=== PATIENT | male | born 1970 | race Caucasian/White ===

== ENCOUNTER 2019-07-21 22:49 | Inpatient (IN) ==
[2019-07-21] MEDS ORDERED: SODIUM CHLORIDE 0.9% 1000ML 1,000 ML IV ONE (23:17)
[2019-07-21] MEDS ORDERED: KETOROLAC TROMETHAMINE 15 MG/ML VIAL IV STA (23:17)
[2019-07-21] MEDS ORDERED: DiphenhydrAMINE HCL 50 MG/ML VIAL IV STA (23:17)
[2019-07-21 23:26] LABS: Basophils # (auto) 0.01 K/uL (0-0.2); Basophils % (auto) 0.1 %; Eosinophils # (auto) 0.25 K/uL (0-0.5); Eosinophils % (auto) 1.6 %; Hematocrit (blood only) 47.5 % (42-52); Hemoglobin 15.6 g/dL (14.0-18.0); Immature Granulocytes % (auto) 0.6 %; Lymphocytes # (auto) 4.05 K/uL (1.2-3.4); Lymphocytes % (auto) 25.2 %; Mean Corpuscular Hemoglobin 28.9 pg (25-34); Mean Corpuscular Hgb Conc 32.8 g/dL (32-36); Mean Platelet Volume 9.1 fL (7.4-10.4); Monocytes # (auto) 1.92 K/uL (0.11-0.59); Neutrophils # (auto) 9.71 K/uL (1.4-6.5); Neutrophils % (auto) 60.5 %; Platelet Count 628 K/uL (130-400); RDW Coefficient of Variation 14.1 % (11.5-14.5); RDW Standard Deviation 45.2 fL (36.4-46.3); White Blood Count 16.04 K/uL (4.8-10.8)
[2019-07-21 23:45] LABS: Alanine Aminotransferase 44 U/L (12-78); Albumin Level 3.4 gm/dl (3.4-5.0); Aspartate Aminotransferase 16 U/L (15-37); BUN Creatinine Ratio 18.4 (10-20); Bilirubin Direct < 0.1 mg/dl (0-0.2); Blood Urea Nitrogen 17 mg/dl (7-18); Calcium 9.1 mg/dl (8.5-10.1); Carbon Dioxide 31 mmol/L (21-32); Chloride 100 mmol/L (98-107); Creatinine Clr Calc Pharmacy 92.2 ml/min; Est GFR (African American) 111.5; Est GFR (Non-African American) 96.2; Glucose 131 mg/dl (70-99); Lipase 181 U/L (73-393); Sodium 138 mmol/L (136-145)
[2019-07-21 23:50] LABS: Alkaline Phosphatase 127 U/L (45-117); Bilirubin,Total 0.4 mg/dl (0.2-1); Total Protein 8.5 gm/dl (6.4-8.2); Troponin I < 0.015 ng/ml (0-0.045)
[2019-07-22 00:34] LABS: D Dimer 1330 ug/L FEU (0-500)
[2019-07-22] MEDS ORDERED: SODIUM CHLORIDE 0.9% 1000ML 1,000 ML IV ONE (00:35)
[2019-07-22] MEDS ORDERED: OPTIRAY 320 125ml IV PRN (01:00)
[2019-07-22] MEDS ORDERED: VANCOMYCIN CONSULT ACTIVE PRN (01:18)
[2019-07-22] MEDS ORDERED: VANCOMYCIN HCL 1,750 MG in SODIUM CHLORIDE 0.9% 500 ML IV ONE ×2 (01:18→05:00)
[2019-07-22] MEDS ORDERED: PIPERACILLIN/TAZOBACTAM 4.5 GM/120 ML BAG IV ONE ×2 (01:18→05:00)
[2019-07-22] MEDS ORDERED: PIPERACILL/TAZOBAC CONSULT ACTIVE PRN (01:18)
[2019-07-22] MEDS ORDERED: levoFLOXacin 750 MG TAB PO ONE (01:39)
[2019-07-22] MEDS ORDERED: SODIUM CHLORIDE 0.9% 1000ML 1,000 ML IV SCH (03:47)
[2019-07-22] MEDS ORDERED: POLYETHYLENE (MIRALAX) 17 GM PACK PO PRN (03:47)
[2019-07-22] MEDS ORDERED: ONDANSETRON INJ 2 MG/ML 2 ML VIAL IV PRN (03:47)
[2019-07-22] MEDS ORDERED: NITROGLYCERIN SL 0.4 MG/TAB TAB SL PRN (03:47)
[2019-07-22] MEDS ORDERED: ACETAMINOPHEN 325 MG TAB PO PRN ×2 (03:47→14:50)
[2019-07-22] MEDS ORDERED: ALBUT/IPRATROP 3MG/0.5MG NEB 3 ML VIAL NEB PRN (03:47)
--- NOTE | 2019-07-22 05:10 | Emergency Department Note ---
Entered by Ambrosio Allen acting as a scribe for Diomedes Cooney MD ED Provider Note Name: Daron Escalante Age: 48 Arrives Via: EMS Informant: Self CC: Right sided chest pain HPI: 48 y/o male arrives for evaluation of constant right sided chest pain beginning 2hours and 15minutes ago. The patient states he was here recently and told he had a touch of pneumonia. He reports he was given doxycycline and took his entire dose. The patient notes throughout the day today he had mild difficulty breathing. He states about 2 hours ago his chest pain suddenly started. The patient reports he took Tylenol without relief, and movement of his right arm does not worsen his symptoms. He notes his is a current smoker and is disabled secondary to a back injury 6 years ago. The patient states a family history of blood clots. He denies cough, fevers, abdominal pain, vomiting, lagos, neck pain, swelling to the legs, weakness, tingling, loss of function of arm, LOC, nausea, vomiting, rashes, being exposed to chemicals, and drug or alcohol use. He also denies a past medical and family history of HTN, CAD, and MA. ROS: See above HPI for pertinent positives & negatives. A total of 10 systems reviewed and were otherwise negative. Past Medical History: None Past Surgical History: None Family History: Blood clots Social History: Disabled. Smoker. Denies alcohol and drug use. Home Medications: none Allergies NKDA Physical: Vitals: BP 121/79, Pulse 100, Resp 20, Temp 98.2 F, O2Sat 93 on RA Exam: GENERAL: Patient is anxious and dehydrated appearing and in moderate acute distress. EYES: No scleral icterus, unremarkable pupils. ENT: Mucous membranes moist, no nasal congestion. NECK: No masses appreciated, no meningismus, trachea is midline. RESPIRATORY: No dyspnea. Clear to auscultation and equal bilaterally. No wheeze, no rhonchi. CARDIOVASCULAR: Mildly tachycardic rate and regular rhythm. No murmurs, rubs, gallops appreciated. GASTROINTESTINAL: Abdomen soft, non-tender, no peritonitis. Bowel sounds positive. No masses appreciated. BACK: No midline tenderness, no CVA tenderness EXTREMITIES: Normal motion all extremities, no cyanosis, no edema. NEUROLOGIC: Alert and oriented, no acute motor or sensory deficits, no focal weakness, cranial nerves grossly intact. SKIN: No rash, no jaundice, no diaphoresis. ED Course: Prior Medical Record, Triage/Nursing Notes, Medications, Allergies reviewed by Me Vital Signs: reviewed and remarkable for wnl Labs: Reviewed and remarkable for elevated dimer Interventions: saline lock, nss bolus 2 L IV, Zosyn 4.5mg IV, Vanco IV, Levaquin 750mg PO Imaging: X ray results are stated below per my interpretation: Chest: 2 view: improved infiltrate RLL, no effusion, normal cardiac border. Radiology results as stated below per my review and the radiologist's interpretation: CTA CHEST: Multifocal pneumonia, particularly the right lower lobe. No evidence of pulmonary embolus. Radiologist: Elijah Moreno MD Study ready at 01:05 and initial results transmitted at 01:11 EKG: Consults: Dr Zuniga Reassessments/Times: 2312: Past medical records reviewed. The patient was evaluated in room B07. A complete history and physical exam was performed. 0011: The patient's symptoms are improving, and he is starting to feel better. 0122: Upon reevaluation, the patient is resting comfortably. I discussed laboratory and radiographic results with him. He verbalized agreement of the treatment plan. The patient will be evaluated for further management and care. 0127: [facility] He will evaluate the patient for further management. 0134: The nurse states the patient no longer wishes to have a hospitalist evaluation. 0137: I discussed the need for a hospitalist evaluation. I discussed the possibility of and/or permanent disability. He understands these risks and would like to leave Against Medical Advice. I discussed the use of Levaquin with him. 0231: The patient changed his mind again and would like to be evaluated by the hospitalist. I ordered a lactate level and blood cultures. 0235: I reviewed the [facility] He will evaluate the patient for further management. Blood pressure: Normal. No Referral necessary Disposition: hospitalization Differentials: Cardiac Ischemia (STEMI, NSTEMI, Unstable Angina, etc), Aortic Dissection, Arrhythmia, Pulmonary Embolism, Pneumonia, Pneumothorax, MSK, Infectious, Pericarditis/Myocarditis, Esophageal Rupture, Gastrointestinal, amongst other pathologies entertained. Medical Decision Makin yr old male who just finished course of doxy for pneumonia arrives for evaluation of worsening right lower lung pain. Dimer positive thus CT a done. CT with multifocal pneumonia. This is in setting of just finishing PO Doxy and is now worsening. He has cleared failed outpatient treatment. He has no outpatient follow up. He is heavy smoker. He is high risk further failure. Patient took quite some time to decide on hospitalization. Was planning on leaving AMA thus given Levaquin though changed his mind and allowed Blood cultures and IV abx. Impression: Multifocal pneumonia Failure of outpatient treatment Diomedes Cooney MD The scribe's documentation has been prepared under my direction and personally reviewed by me in its entirety. I confirm that the note above accurately reflects all work, treatment, procedures, and medical decision making performed by me. Impression & Plan Multifocal pneumonia, Failure of outpatient treatment Past Med/Surg History Medical History No pertinent past medical history Surgical History No significant past surgical history Family History Other Family history of blood clots Social History marital status: Single Current Living Situation: Family current occupational status: unemployed Feels Safe at Home: Yes Smoking Status: Current every day smoker Hx Alcohol Use: No Results & Data Vital Signs Vital Signs - 24 hr 07/21/19 22:57 07/21/19 22:59 07/21/19 23:00 Temperature 36.8 C Temperature Source Oral Pulse Rate 97 H 95 H 97 H Pulse Rate [Bilateral] Pulse Rate from SpO2 Sensor 98 H 95 H 97 H Pulse Rhythm Regular Pulse Strength Normal Respiratory Rate 26 H 31 H 21 Respiratory Effort / Characteristics Non-Labored Spontaneous Respiratory Depth Normal Respiratory Pattern Regular Blood Pressure 121/83 121/79 Blood Pressure [Right Arm] Blood Pressure Mean 89 85 Blood Pressure Mean [Right Arm] Blood Pressure Position Sitting Pulse Oximetry 94 93 93 Oxygen Delivery Method Room Air Sepsis Recent Fever Within 48 Hours No Sepsis Action Taken by Nursing No Action Required 07/21/19 23:15 07/21/19 23:30 07/21/19 23:54 Temperature Temperature Source Pulse Rate 92 H 93 H 91 H Pulse Rate [Bilateral] Pulse Rate from SpO2 Sensor 94 H 93 H 89 Pulse Rhythm Pulse Strength Respiratory Rate 27 H 32 H 29 H Respiratory Effort / Characteristics Respiratory Depth Respiratory Pattern Blood Pressure 116/71 Blood Pressure [Right Arm] Blood Pressure Mean 84 Blood Pressure Mean [Right Arm] Blood Pressure Position Pulse Oximetry 94 94 96 Oxygen Delivery Method Sepsis Recent Fever Within 48 Hours Sepsis Action Taken by Nursing 07/22/19 00:00 07/22/19 00:01 07/22/19 00:15 Temperature Temperature Source Pulse Rate 87 88 91 H Pulse Rate [Bilateral] Pulse Rate from SpO2 Sensor 89 89 92 H Pulse Rhythm Pulse Strength Respiratory Rate 27 H 28 H 26 H Respiratory Effort / Characteristics Respiratory Depth Respiratory Pattern Blood Pressure 112/80 Blood Pressure [Right Arm] Blood Pressure Mean 97 Blood Pressure Mean [Right Arm] Blood Pressure Position Pulse Oximetry 95 95 96 Oxygen Delivery Method Sepsis Recent Fever Within 48 Hours Sepsis Action Taken by Nursing 07/22/19 00:30 07/22/19 00:31 07/22/19 01:00 Temperature Temperature Source Pulse Rate 87 90 91 H Pulse Rate [Bilateral] Pulse Rate from SpO2 Sensor 89 88 92 H Pulse Rhythm Pulse Strength Respiratory Rate 26 H 21 28 H Respiratory Effort / Characteristics Respiratory Depth Respiratory Pattern Blood Pressure 107/70 125/79 Blood Pressure [Right Arm] Blood Pressure Mean 78 92 Blood Pressure Mean [Right Arm] Blood Pressure Position Pulse Oximetry 95 96 97 Oxygen Delivery Method Sepsis Recent Fever Within 48 Hours Sepsis Action Taken by Nursing 07/22/19 01:02 07/22/19 01:04 07/22/19 01:15 Temperature Temperature Source Pulse Rate 89 90 Pulse Rate [Bilateral] 88 Pulse Rate from SpO2 Sensor 88 91 H Pulse Rhythm Pulse Strength Respiratory Rate 24 16 28 H Respiratory Effort / Characteristics Non-Labored Respiratory Depth Normal Respiratory Pattern Blood Pressure Blood Pressure [Right Arm] 98/65 L Blood Pressure Mean Blood Pressure Mean [Right Arm] 76 Blood Pressure Position Pulse Oximetry 97 97 97 Oxygen Delivery Method Room Air Sepsis Recent Fever Within 48 Hours Sepsis Action Taken by Nursing 07/22/19 01:30 07/22/19 01:45 07/22/19 02:02 Temperature Temperature Source Pulse Rate 92 H 91 H Pulse Rate [Bilateral] Pulse Rate from SpO2 Sensor 91 H 91 H Pulse Rhythm Pulse Strength Respiratory Rate 27 H 28 H Respiratory Effort / Characteristics Respiratory Depth Respiratory Pattern Blood Pressure 122/77 140/87 Blood Pressure [Right Arm] Blood Pressure Mean 86 93 Blood Pressure Mean [Right Arm] Blood Pressure Position Pulse Oximetry 97 96 Oxygen Delivery Method Sepsis Recent Fever Within 48 Hours Sepsis Action Taken by Nursing 07/22/19 02:30 Temperature Temperature Source Pulse Rate Pulse Rate [Bilateral] Pulse Rate from SpO2 Sensor Pulse Rhythm Pulse Strength Respiratory Rate Respiratory Effort / Characteristics Respiratory Depth Respiratory Pattern Blood Pressure 125/75 Blood Pressure [Right Arm] Blood Pressure Mean 82 Blood Pressure Mean [Right Arm] Blood Pressure Position Pulse Oximetry Oxygen Delivery Method Sepsis Recent Fever Within 48 Hours Sepsis Action Taken by Nursing Laboratory Data Result diagrams: 07/21/19 22:38 07/21/19 22:38 Lab Results 07/21/19 07/21/19 07/21/19 Range/Units 22:38 22:38 22:38 WBC 16.04 H (4.8-10.8) K/uL RBC 5.40 (4.7-6.1) M/uL Hgb 15.6 (14.0-18.0) g/dL Hct 47.5 (42-52) % MCV 88.0 (80-100) fL MCH 28.9 (25-34) pg MCHC 32.8 (32-36) g/dL RDW Std Deviation 45.2 (36.4-46.3) fL RDW Coeff of Martin 14.1 (11.5-14.5) % Plt Count 628 H (130-400) K/uL MPV 9.1 (7.4-10.4) fL Immature Gran % (Auto) 0.6 % Neut % (Auto) 60.5 % Lymph % (Auto) 25.2 % [place] % (Auto) 12.0 % Eos % (Auto) 1.6 % Baso % (Auto) 0.1 % Immature Gran # (Auto) 0.10 H (0.00-0.02) K/uL Neut # (Auto) 9.71 H (1.4-6.5) K/uL Lymph # (Auto) 4.05 H (1.2-3.4) K/uL [place] # (Auto) 1.92 H (0.11-0.59) K/uL Eos # (Auto) 0.25 (0-0.5) K/uL Baso # (Auto) 0.01 (0-0.2) K/uL D-Dimer Cancelled Sodium 138 (136-145) mmol/L Potassium 4.0 (3.5-5.1) mmol/L Chloride 100 (98-107) mmol/L Carbon Dioxide 31 (21-32) mmol/L Anion Gap 7.0 (3-11) BUN 17 (7-18) mg/dl Creatinine 0.94 (0.6-1.4) mg/dl Est Cr Clr Drug Dosing 92.2 ml/min Est GFR ( Amer) 111.5 Est GFR (Non-Af Amer) 96.2 BUN/Creatinine Ratio 18.4 (10-20) Glucose 131 H (70-99) mg/dl Calcium 9.1 (8.5-10.1) mg/dl Total Bilirubin 0.4 (0.2-1) mg/dl Direct Bilirubin < 0.1 (0-0.2) mg/dl AST 16 (15-37) U/L ALT 44 (12-78) U/L Alkaline Phosphatase 127 H (45-117) U/L Troponin I < 0.015 (0-0.045) ng/ml Total Protein 8.5 H (6.4-8.2) gm/dl Albumin 3.4 (3.4-5.0) gm/dl Lipase 181 (73-393) U/L 07/22/19 Range/Units 00:06 WBC (4.8-10.8) K/uL RBC (4.7-6.1) M/uL Hgb (14.0-18.0) g/dL Hct (42-52) % MCV (80-100) fL MCH (25-34) pg MCHC (32-36) g/dL RDW Std Deviation (36.4-46.3) fL RDW Coeff of Martin (11.5-14.5) % Plt Count (130-400) K/uL MPV (7.4-10.4) fL Immature Gran % (Auto) % Neut % (Auto) % Lymph % (Auto) % [place] % (Auto) % Eos % (Auto) % Baso % (Auto) % Immature Gran # (Auto) (0.00-0.02) K/uL Neut # (Auto) (1.4-6.5) K/uL Lymph # (Auto) (1.2-3.4) K/uL [place] # (Auto) (0.11-0.59) K/uL Eos # (Auto) (0-0.5) K/uL Baso # (Auto) (0-0.2) K/uL D-Dimer 1330 H* Sodium (136-145) mmol/L Potassium (3.5-5.1) mmol/L Chloride (98-107) mmol/L Carbon Dioxide (21-32) mmol/L Anion Gap (3-11) BUN (7-18) mg/dl Creatinine (0.6-1.4) mg/dl Est Cr Clr Drug Dosing ml/min Est GFR ( Amer) Est GFR (Non-Af Amer) BUN/Creatinine Ratio (10-20) Glucose (70-99) mg/dl Calcium (8.5-10.1) mg/dl Total Bilirubin (0.2-1) mg/dl Direct Bilirubin (0-0.2) mg/dl AST (15-37) U/L ALT (12-78) U/L Alkaline Phosphatase (45-117) U/L Troponin I (0-0.045) ng/ml Total Protein (6.4-8.2) gm/dl Albumin (3.4-5.0) gm/dl Lipase (73-393) U/L Administered Medications Acetaminophen (Tylenol) 650 mg PO Q4H PRN PRN Reason: Pain or Fever Stop: 08/21/19 03:46 Last Admin: 07/22/19 04:08 Dose: 650 mg Documented by: [id number] Sodium Chloride (Nss 1000ml) 1,000 mls @ 100 mls/hr IV .Q10H ANNAMARIE Stop: 08/21/19 03:46 Last Admin: 07/22/19 04:08 Dose: 100 mls/hr Documented by: [id number] Piperacillin Sod/Tazobactam Sod (Zosyn) 4.5 gm in 120 mls @ 240 mls/hr IV NOW ONE Stop: 07/22/19 05:29 Last Admin: 07/22/19 04:55 Dose: 240 mls/hr Documented by: [id number] Vancomycin HCl 1,750 mg/ (Sodium Chloride) 535 mls @ 200 mls/hr IV NOW ONE Stop: 07/22/19 07:40 Last Admin: 07/22/19 04:58 Dose: 200 mls/hr Documented by: [id number] Discontinued Medications Diphenhydramine HCl (Benadryl) 25 mg IV NOW STA Stop: 07/21/19 23:18 Last Admin: 07/21/19 23:35 Dose: 25 mg Documented by: [id number] Sodium Chloride (Nss 1000ml) 1,000 mls @ 999 mls/hr IV .Q1H1M ONE Stop: 07/22/19 00:17 Last Infusion: 07/22/19 00:37 Dose: 0 mls/hr Documented by: [id number] Admin: 07/21/19 23:34 Dose: 999 mls/hr Documented by: [id number] Sodium Chloride (Nss 1000ml) 1,000 mls @ 999 mls/hr IV .Q1H1M ONE Stop: 07/22/19 01:35 Last Infusion: 07/22/19 01:40 Dose: 0 mls/hr Documented by: [id number] Admin: 07/22/19 00:39 Dose: 999 mls/hr Documented by: [id number] Piperacillin Sod/Tazobactam Sod (Zosyn) 4.5 gm in 120 mls @ 240 mls/hr IV NOW ONE Stop: 07/22/19 01:47 Last Admin: 07/22/19 02:03 Dose: Not Given Documented by: [id number] Vancomycin HCl 1,750 mg/ (Sodium Chloride) 535 mls @ 200 mls/hr IV NOW ONE Stop: 07/22/19 03:58 Last Admin: 07/22/19 02:04 Dose: Not Given Documented by: [id number] Ioversol (Optiray 320 125ml) 117 ml IV ONCE PRN PRN Reason: Interaction Checking Stop: 07/26/19 00:59 Last Admin: 07/22/19 01:00 Dose: 1 ml Documented by: [id number] Ketorolac Tromethamine (Toradol) 15 mg IV NOW STA Stop: 07/21/19 23:18 Last Admin: 07/21/19 23:34 Dose: 15 mg Documented by: [id number] Levofloxacin (Levaquin) 750 mg PO ONE ONE Stop: 07/22/19 01:40 Last Admin: 07/22/19 02:03 Dose: 750 mg Documented by: [id number] Discharge Plan Visit Data *Final* Discharge Date/Time: 07/22/19 03:25 Chief Complaint: Chest Pain Stated Complaint: CHEST PAIN ED Provider: Diomedes Cooney Discharge Problem: Multifocal pneumonia, Failure of outpatient treatment Patient Disposition: Admitted As Inpatient Condition: Good Discharge Instructions Interventions: ED Discharge Assessment Last Done: 07/22/19 03:25 The scribe's documentation has been prepared under my direction and personally reviewed by me in its entirety. I confirm that the note above accurately reflec ts all work, treatment, procedures, and medical decision making performed by me.
[2019-07-22 05:39] LABS: Basophils # (auto) 0.02 K/uL (0-0.2); Basophils % (auto) 0.1 %; Eosinophils # (auto) 0.01 K/uL (0-0.5); Hematocrit (blood only) 40.6 % (42-52); Hemoglobin 13.6 g/dL (14.0-18.0); Immature Granulocytes # (auto) 0.07 K/uL (0.00-0.02); Immature Granulocytes % (auto) 0.3 %; Lymphocytes # (auto) 1.26 K/uL (1.2-3.4); Lymphocytes % (auto) 6.2 %; Mean Corpuscular Hemoglobin 29.1 pg (25-34); Mean Corpuscular Hgb Conc 33.5 g/dL (32-36); Mean Corpuscular Volume 86.8 fL (80-100); Mean Platelet Volume 8.6 fL (7.4-10.4); Monocytes # (auto) 0.92 K/uL (0.11-0.59); Monocytes % (auto) 4.5 %; Neutrophils # (auto) 17.98 K/uL (1.4-6.5); Neutrophils % (auto) 88.9 %; Platelet Count 599 K/uL (130-400); RDW Coefficient of Variation 14.2 % (11.5-14.5); Red Blood Count 4.68 M/uL (4.7-6.1); White Blood Count 20.26 K/uL (4.8-10.8)
[2019-07-22 06:05] LABS: BUN Creatinine Ratio 15.6 (10-20); Calcium 8.6 mg/dl (8.5-10.1); Creatinine Clr Calc Pharmacy 100.9 ml/min; Est GFR (African American) 120.8; Est GFR (Non-African American) 104.3; Magnesium 2.1 mg/dl (1.8-2.4); Potassium 4.4 mmol/L (3.5-5.1)
[2019-07-22 06:28] LABS: Appearance Urine Clear (Clear); Bilirubin Urine Negative (Negative); Blood Urine Negative (Negative); Color Urine Yellow; Glucose Urine UA Negative (Negative); Ketones Urine Negative (Negative); Leukocyte Esterase Urine Negative (Negative); Nitrite Urine Negative (Negative); Protein Urine Negative (Negative); Specific Gravity Urine 1.026 (1.000-1.030); Urobilinogen Urine Negative (Negative)
--- NOTE | 2019-07-22 06:49 | XRay Report ---
XR chest 2V PA/lateral HISTORY: 48 years-old Male right lower chest pain, recent pneumonia acute chest pain and shortness o f breath with nausea COMPARISON: CTA of the chest 07/22/2019, chest radiograph 07/10/2019 TECHNIQUE: PA and lateral views of the chest FINDINGS: Cardiomediastinal and hilar silhouettes are unchanged. Mild hyperinflation. Mildly improved aeration of the bilateral lungs with persistent interstitial and right lung base opacities. No pneumothorax or large pleural effusion. Bones appear grossly intact. IMPRESSION: Mildly improved aeration of the lungs from comparison study dated 07/10/2019 with persiste nt bilateral interstitial opacities and right lung base consolidation suggestive of ongoing infectiou s or inflammatory pneumonitis. The above report was generated using voice recognition software. It may contain grammatical, syntax o r spelling errors. Electronically signed by: Laith Orellana M.D. 07/22/2019 6:47 AM
[2019-07-22] MEDS ORDERED: SODIUM CHLORIDE 0.9% 1000ML 250 ML IV ONE (07:40)
--- NOTE | 2019-07-22 08:25 | CT Scan Report ---
CT angio chest PE protocol CT DOSE: 279.50 mGy.cm HISTORY: 48 years-old Male with PE. Acute shortness of breath TECHNIQUE: Multiple CTA images of the chest were obtained after the intravenous administration of 118 ml Optiray 320. Coronal and sagittal MIPS were obtained from the axial data set and were submitted for review. All measurements were obtained according to NASCET criteria. A dose lowering technique w as utilized adhering to the principles of ALARA. COMPARISON: Chest radiographs 07/21/2019 and 07/10/2019 FINDINGS: CTA: Heart is normal in size without pericardial effusion. No thoracic aortic aneurysm or dissection. Gauthier ncy of the imaged great vessels. Pulmonary arterial tree is opacified to level of the subsegmental br anches and demonstrates no evidence of central pulmonary thromboembolic disease. Filling defects are noted within subsegmental branches of the lateral basal segment right lower lobe (for example image 9 [address] CHEST: Unremarkable thyroid. Enlarged subcarinal lymph node, 1.8 x 2.7 cm. 1.2 cm right hilar lymph node. Tr tayler right pleural effusion. No pneumothorax. Mild emphysema. Patchy bilateral reticular nodular minim al groundglass opacities, right greater than left are noted with patchy right lower lobe consolidatio n. Mild dependent subsegmental left basilar atelectasis. Mild bibasilar bronchial wall thickening. Mo derate secretions are noted about the right mainstem bronchus with additional layering secretions see n within the trachea. Mild nonspecific distal esophageal wall thickening. No acute process of the imaged upper abdomen. Sof t tissues are within normal limits. The bones appear intact. IMPRESSION: 1. Filling defects involving subsegmental branches of the lateral basal segment right lower lobe pulm onary artery are suggestive of pulmonary emboli. No central pulmonary emboli identified. This finding was called/faxed to the nursing floor at time of dictation. 2. Bilateral reticular nodular and groundglass opacities with right lower lobe consolidation suggests atypical bronchopneumonia. 3. Tracheobronchial secretions are also noted. Correlate clinically to exclude associated aspiration pneumonitis. 4. Emphysema with bronchitis. 5. Mediastinal and hilar adenopathy, likely reactive. The above report was generated using voice recognition software. It may contain grammatical, syntax o r spelling errors. Electronically signed by: Laith Orellana M.D. 07/22/2019 8:22 AM
[2019-07-22] MEDS ORDERED: INFLUENZA VIRUS QUAD VACCINE 0.5 ML SYR IM ONE (08:30)
[2019-07-22] MEDS ORDERED: INFLUENZA ADMINISTRATION CHARGE ONE (08:30)
[2019-07-22] MEDS: ENOXAPARIN 80 MG/0.8 ML SYR SQ SCH ×2 (08:51→20:25)
--- NOTE | 2019-07-22 09:06 | Pharmacy Report ---
Pharmacy Abx Initial Consult - Date of Service July 22, 2019 - Pharmacy Dosing Scope Date of Consult: 07/22/19 Consultation requested by: Dr. Zuniga Pharmacy is consulted to initiate Vancomycin and Zosyn IV dosing therapy, order appropriate labs and adjust drug dose/frequency. - Subjective The patient is a 48 year old M admitted on 07/22/19 02:55. - Objective Height: 5 ft 11 in Weight: 65.6 kg Vital Signs (Past 12hrs): Vital Signs Temp Pulse Pulse Resp BP BP Pulse Ox 07/22/19 08:21 80 07/22/19 07:31 36.5 C 81 16 94/49 L 95 07/22/19 05:27 93 H 07/22/19 05:16 07/22/19 05:04 36.7 C 95 H 16 117/73 96 07/22/19 04:15 36.7 C 95 H 16 117/73 95 07/22/19 03:01 96 07/22/19 03:00 121/75 96 07/22/19 02:56 96 07/22/19 02:30 125/75 07/22/19 02:02 140/87 07/22/19 01:45 91 H 28 H 96 07/22/19 01:30 92 H 27 H 122/77 97 07/22/19 01:15 90 28 H 97 07/22/19 01:04 88 16 98/65 L 97 07/22/19 01:02 89 24 97 07/22/19 01:00 91 H 28 H 125/79 97 07/22/19 00:31 90 21 96 07/22/19 00:30 87 26 H 107/70 95 07/22/19 00:15 91 H 26 H 96 07/22/19 00:01 88 28 H 95 07/22/19 00:00 87 27 H 112/80 95 07/21/19 23:54 91 H 29 H 96 07/21/19 23:30 93 H 32 H 116/71 94 07/21/19 23:15 92 H 27 H 94 07/21/19 23:00 97 H 21 121/79 93 07/21/19 22:59 95 H 31 H 93 07/21/19 22:57 36.8 C 97 H 26 H 121/83 94 Pulse Ox 07/22/19 08:21 07/22/19 07:31 07/22/19 05:27 07/22/19 05:16 96 07/22/19 05:04 07/22/19 04:15 07/22/19 03:01 07/22/19 03:00 07/22/19 02:56 07/22/19 02:30 07/22/19 02:02 07/22/19 01:45 07/22/19 01:30 07/22/19 01:15 07/22/19 01:04 07/22/19 01:02 07/22/19 01:00 07/22/19 00:31 07/22/19 00:30 07/22/19 00:15 07/22/19 00:01 07/22/19 00:00 07/21/19 23:54 07/21/19 23:30 07/21/19 23:15 07/21/19 23:00 07/21/19 22:59 07/21/19 22:57 Lab Results (24hrs): Laboratory Tests (24 Hours) 07/22/19 07/22/19 07/21/19 05:16 05:16 22:38 WBC 20.26 H Neut # (Auto) 17.98 H Creatinine 0.84 0.94 Est Cr Clr Drug Dosing 100.9 92.2 07/21/19 22:38 WBC 16.04 H Neut # (Auto) 9.71 H Creatinine Est Cr Clr Drug Dosing Micro Results: 07/22/19 02:55 Aerobic Blood Culture - Pending Blood Anaerobic Blood Culture - Pending 07/22/19 02:47 Aerobic Blood Culture - Pending Blood Anaerobic Blood Culture - Pending - Risk Factors for Resistance * Antimicrobial use within the last 90 days: Doxycycline from 07/10-07/20 for pneumonia - Assessment & Plan Assessment 48 year old M admitted on the evening of 07/21/19 for chest pain - No significant PMHx - Recently treated with 10 day course of doxycycline for suspected pneumonia as an outpatient - Presents to ED with complaints of chest pain - Chest CT shows "suspected subsegmental pulmonary emboli and bilateral groundglass opacities with RLL consolidation suggestive of atypical bronchopneumonia" - WBCs 20,300, afebrile, no elevation of lactate Plan IV Vancomycin and Zosyn for treatment of pneumonia Vancomycin IV * Estimated PK Parameters: Vd 0.7 L/kg, Zachery 0.088 hr-1, t1/2 ~8 hrs * Loading dose: 1750 mg (27 mg/kg) * Maintenance dose: 750 mg IV (12 mg/kg) every 8 hours * Goal trough level for pneumonia: 15 to 20 mcg/mL * Trough level ordered for 07/23/19 at 1130 prior to the 4th dose Piperacillin/tazobactam * 4.5 g bolus administered over 30 minutes, then 3.375 g IV extended infusion every 8 hours for CrCl greater than 20 mL/min Pharmacy will continue to follow and will adjust dose/frequency as necessary. Thank you.
[2019-07-22] MEDS: PIPERACILLIN/TAZOBACTAM 3.375 GM in DEXTROSE 5% 100 ML IV SCH ×2 (09:27→18:23)
--- NOTE | 2019-07-22 09:28 | Ultrasound Report ---
BILATERAL LOWER EXTREMITY VENOUS DOPPLER HISTORY: Pulmonary embolus rule out DVT COMPARISON STUDY: None. FINDINGS: There is normal compressibility, flow, and augmentation within the bilateral lower extremit y deep venous systems. IMPRESSION: No DVT within the right or left lower extremity. Electronically signed by: Laith Orellana M.D. 07/22/2019 9:27 AM
--- NOTE | 2019-07-22 10:29 | History and Physical Report ---
DATE OF ADMISSION: 07/22/2019 CHIEF COMPLAINT: Chest pain. HISTORY OF PRESENT ILLNESS: This is a 48-year-old male with past medical history significant to tobacco abuse, comes with chest pain. The patient was here in the hospital on 07/10/2019 with cough and was found to have right-sided pneumonia and was discharged on p.o. doxycycline for 10 days. The patient states he has just finished doxycycline, and he is not coughing and he has no fever. He has some mild sweating, but he has developed right-sided chest pain, which brought him to the ER. In the ER, his white count was 16,000. He is afebrile, saturating okay on room air. His D-dimer was elevated at 1300. CTA of the chest was done, unofficial report is unremarkable except for pneumonia. Since he failed outpatient treatment, we are called for admission. The patient initially refused to stay in the hospital but then agreed. He received IV Zosyn and vancomycin in the ER since he already had doxycycline. The patient denies any headache, no blurred vision, no earache, no runny nose, no sore throat. Appetite is okay. No shortness of breath, no cough, no fever, no nausea, no abdominal pain. Normal bowel and bladder movements. No hematuria, no burning micturition, no melena, or hematochezia. No swelling in the legs, no rash. He says he lives with his girlfriend. He states he has never been hospitalized before. Patient states he smokes 1.5 pack a day for the last 17 years. Quit alcohol in the s and also used to smoke marijuana 20 years ago. ALLERGIES: No known drug allergies. PAST MEDICAL HISTORY: None as per patient. PAST SURGICAL HISTORY: None as per patient. MEDICATIONS: None as per patient. FAMILY HISTORY: Grandfather has blood clots. SOCIAL HISTORY: Smokes 1.5 packs a day for last 17 years. Alcohol, quit in the 90s. He used to smoke marijuana in the long-term past. Lives with his girlfriend. REVIEW OF SYMPTOMS: As per HPI. Rest of review of systems negative. PHYSICAL EXAMINATION: GENERAL: The patient is of moderate build, not in acute distress. VITAL SIGNS: Temperature 36.8, pulse 88, respiratory rate 16, blood pressure 90/65, oxygen 97% room air. HEENT: No pallor, no icterus. Pupils equal, round, reactive to light. NECK: No JVD, no neck masses, no carotid bruits. CARDIOVASCULAR: S1, S2 heard. Regular rate and rhythm. No murmurs. RESPIRATORY SYSTEM: Normal AP diameter, bilateral diminished breath sounds. No wheezing, no crackles. ABDOMEN: Soft, bowel sounds are present. Nontender. No distention. CENTRAL NERVOUS SYSTEM: Cranial nerves II-XII grossly nonfocal. EXTREMITIES: No edema, no erythema. LABORATORY DATA: WBC 16, hemoglobin 15.6, hematocrit 47.5, platelets 628. D-dimer 1330. Sodium 138, potassium 4, chloride 100, bicarbonate 31, BUN 17, creatinine 0.9, serum glucose 131, calcium 9.1, total bilirubin 0.4, direct bilirubin less than 0.1, AST 16, ALT 44, alkaline phosphatase is 127. Troponin I less than 0.015. Lipase 181. Chest x-ray shows right lower lobe infiltrate. CTA of the chest pending. ASSESSMENT AND PLAN: 1. This is a 48-year-old male who presents with pneumonia, failed outpatient treatment with doxycycline, presents with chest pain, has white count of 16. Await CTA of the chest official report. He was started empirically on IV vancomycin and IV Zosyn. The patient already had doxycycline as outpatient. We will continue the same antibiotics. Follow the cultures. IV fluids and normal saline 100 mL per hour. Monitor in the Med/Surg tele. 2. Chest pain, mostly from pneumonia. EKG shows normal sinus rhythm, nonspecific T-wave abnormality. Troponin is negative. We will follow serial cardiac enzymes and repeat EKG in a.m. If any concerns, we will get echo. 3. Tobacco abuse. Currently no wheezing or diminished breath sounds, placed on DuoNebs p.r.n., needs counseling. 4. Deep venous thrombosis prophylaxis, sequential compression devices for now. 5. Disposition: Admit to Med/Surg tele. Level 1 full code. MTDD
[2019-07-22] MEDS ORDERED: WARFARIN SOD 5 MG TAB PO ONE (11:31)
--- NOTE | 2019-07-22 11:31 | Hospitalist Progress Note ---
Date of Service July 22, 2019 Assessment & Plan (1) Pneumonia: -This is a 48-year-old male with past medical history significant to tobacco abuse, comes with chest pain. The patient was here in the hospital on 07/10/2019 with cough and was found to have right-sided pneumonia and was dis charged on p.o. doxycycline for 10 days. The patient states he has just finished doxycycline, but he is not coughing and he has no fever. He has some mild sweating, but he has developed right-sided chest pain, which brought him to the ER. In the ER on 07/22/19 during which he was found to have leukocytosis of 16,000 with imaging findings of persistent pneumonia -patient was started on IV Zosyn and IV Vancomycin -as of 07/22/19 will stop Vancomycin, continue IV Zosyn, add Doxycycline BID, follow the admission blood cultures Suspected Pulmonary embolism -elevated D-dimer of 1300 -On CTA 07/22/19, Radiologist interpretation of filling defects involving subsegmental branches of the lateral basal segment right lower lobe pulmonary artery are suggestive of pulmonary emboli. No central pulmonary emboli identified. -ultrasound of Lower extremities does not show evidence fo Deep Vein Thrombosis -discussed with patient that the lack of deep vein thrombosis of the legs would not support a strong diagnosis of pulmonary embolism -However, given that pulmonary embolism cannot be completely ruled out at this time, advised patient of systemic anticoagulation for 3 months from 07/22/19 and repeat pulmonary embolism scans in the future as outpatient -patient is started on Lovenox 70 mg q12 hours for doing of 1 mg/kg q12 hours with 5 mg daily warfarin started on 07/22/19 (2) Pleuritic chest pain: -chest pain likely from pneumonia and possibly from suspected pulmonary embolism -troponins negative x 2, would not pursue further cardiac workup at this time for chest pain (3) Tobacco use: -advise smoking cessation Case Management -patient does not have insurance and does not have primary care doctor -requested that case management help with seeking medical financial assistance/insurance coverage Subjective Patient breathing on room air. denies acute chest pain currently. denies abdomen pain. no vomiting. Discussed with patient about IV antibiotic treatment for pneumonia and anticoagulation treatment for suspected pulmonary embolism. Review of Systems Review of Systems: All systems reviewed & are unremarkable except as noted in HPI & below Physical Exam Constitutional: comfortable Eyes: PERRL, conjunctivae normal, anicteric sclerae EOM intact bilaterally ENMT: external ear and nose normal, oropharynx normal Respiratory: normal respiratory effort Cardiovascular: Rate/Rhythm: regular rate Gastrointestinal (Abdomen): normal bowel sounds, soft, nontender, no hepatosplenomegaly Musculoskeletal: Head/Neck/Chest: normocephalic and head atraumatic Neurologic: PERRL, EOMI, accommodation nl, no face palsy, no dysarthria CN's II-XI intact bilaterally Psychiatric: A+Ox3, euthymic affect Results & Data Vital Signs (Past 12 Hours) Vital Signs Temp Pulse Pulse Resp BP BP Pulse Ox 07/22/19 08:21 80 07/22/19 07:31 36.5 C 81 16 94/49 L 95 07/22/19 05:27 93 H 07/22/19 05:16 07/22/19 05:04 36.7 C 95 H 16 117/73 96 07/22/19 04:15 36.7 C 95 H 16 117/73 95 07/22/19 03:01 96 07/22/19 03:00 121/75 96 07/22/19 02:56 96 07/22/19 02:30 125/75 07/22/19 02:02 140/87 07/22/19 01:45 91 H 28 H 96 07/22/19 01:30 92 H 27 H 122/77 97 07/22/19 01:15 90 28 H 97 07/22/19 01:04 88 16 98/65 L 97 07/22/19 01:02 89 24 97 07/22/19 01:00 91 H 28 H 125/79 97 07/22/19 00:31 90 21 96 07/22/19 00:30 87 26 H 107/70 95 07/22/19 00:15 91 H 26 H 96 07/22/19 00:01 88 28 H 95 07/22/19 00:00 87 27 H 112/80 95 07/21/19 23:54 91 H 29 H 96 Pulse Ox 07/22/19 08:21 07/22/19 07:31 07/22/19 05:27 07/22/19 05:16 96 07/22/19 05:04 07/22/19 04:15 07/22/19 03:01 07/22/19 03:00 07/22/19 02:56 07/22/19 02:30 07/22/19 02:02 07/22/19 01:45 07/22/19 01:30 07/22/19 01:15 07/22/19 01:04 07/22/19 01:02 07/22/19 01:00 07/22/19 00:31 07/22/19 00:30 07/22/19 00:15 07/22/19 00:01 07/22/19 00:00 07/21/19 23:54 (1) Pneumonia Laterality: right Lung location: lower lobe of lung Pneumonia type: due to unspecified organism Qualified Code(s): J18.1 - Lobar pneumonia, unspecified organism
[2019-07-22] MEDS ORDERED: VANCOMYCIN HCL 750 MG in SODIUM CHLORIDE 0.9% 250 ML IV SCH (12:00)
[2019-07-22] MEDS: DOXYCYCLINE HYCLATE 100 MG in DEXTROSE 5% 100 ML IV SCH ×2 (12:34→20:30)
[2019-07-22] MEDS: HYDROmorphone INJ 0.5 MG/0.5 ML SYR IV PRN (15:03)
[2019-07-22] MEDS: KETOROLAC TROMETHAMINE 15 MG/ML VIAL IV PRN (17:05)
[2019-07-23] MEDS: HYDROmorphone INJ 0.5 MG/0.5 ML SYR IV PRN (00:34)
[2019-07-23] MEDS: PIPERACILLIN/TAZOBACTAM 3.375 GM in DEXTROSE 5% 100 ML IV SCH (02:15)
[2019-07-23] MEDS: KETOROLAC TROMETHAMINE 15 MG/ML VIAL IV PRN (05:51)
[2019-07-23 06:12] LABS: Basophils # (auto) 0.04 K/uL (0-0.2); Basophils % (auto) 0.2 %; Eosinophils # (auto) 0.18 K/uL (0-0.5); Eosinophils % (auto) 1.1 %; Hematocrit (blood only) 42.2 % (42-52); Hemoglobin 13.9 g/dL (14.0-18.0); Immature Granulocytes # (auto) 0.06 K/uL (0.00-0.02); Immature Granulocytes % (auto) 0.4 %; Lymphocytes # (auto) 2.37 K/uL (1.2-3.4); Lymphocytes % (auto) 14.8 %; Mean Corpuscular Hemoglobin 28.8 pg (25-34); Mean Corpuscular Hgb Conc 32.9 g/dL (32-36); Mean Corpuscular Volume 87.6 fL (80-100); Mean Platelet Volume 8.6 fL (7.4-10.4); Monocytes # (auto) 2.09 K/uL (0.11-0.59); Monocytes % (auto) 13.1 %; Neutrophils # (auto) 11.27 K/uL (1.4-6.5); Neutrophils % (auto) 70.4 %; Platelet Count 564 K/uL (130-400); RDW Coefficient of Variation 14.5 % (11.5-14.5); RDW Standard Deviation 46.6 fL (36.4-46.3); Red Blood Count 4.82 M/uL (4.7-6.1); White Blood Count 16.01 K/uL (4.8-10.8)
[2019-07-23 06:34] LABS: INR 1.1 (0.9-1.1); Prothrombin Time 10.9 Seconds (9.0-12.0)
[2019-07-23 06:50] LABS: Albumin Level 2.8 gm/dl (3.4-5.0); BUN Creatinine Ratio 13.3 (10-20); Calcium 9.1 mg/dl (8.5-10.1); Creatinine Clr Calc Pharmacy 92.1 ml/min; Est GFR (African American) 114.4; Est GFR (Non-African American) 98.7; Potassium 4.2 mmol/L (3.5-5.1)
[2019-07-23 06:53] LABS: Albumin Globulin Ratio 0.7 (0.9-2); Bilirubin,Total 0.5 mg/dl (0.2-1); Globulin 4.3 gm/dl (2.5-4.0); Total Protein 7.1 gm/dl (6.4-8.2)
[2019-07-23] MEDS: DOXYCYCLINE HYCLATE 100 MG in DEXTROSE 5% 100 ML IV SCH (07:32)
[2019-07-23] MEDS: ENOXAPARIN 80 MG/0.8 ML SYR SQ SCH (07:32)
[2019-07-23] MEDS ORDERED: ZOLPIDEM TARTRATE 5 MG TAB PO PRN (07:44)
--- NOTE | 2019-07-23 08:52 | Pulmonology Progress Note ---
Date of Service July 23, 2019 Assessment & Plan (1) Abnormal CT scan of lung: Impression: 48-year-old male with recent admission for pneumonia presenting now with chest pain and found to have hemodynamically insignificant thromboembolic disease with an abnormal CT scan. Findings may be consistent with smoking-related lung disease versus infectious etiology. Follow-up is warranted. Recommendations: 1. Acute PE: This appears to be hemodynamically insignificant. Will check BNP and troponin. If negative no indication for echocardiogram. Would recommend 3 to 6 months of anticoagulation. Given his young age, consultation with hematology and limited testing for inherited thrombophilia may be appropriate. 2. Tobacco abuse: Smoking cessation recommended. 3. Abnormal CT scan: Given his elevated white count, these findings may be infectious. Doxycycline may have been inadequate therapy for his pneumonia. Recommend transition to Rocephin and azithromycin. Check procalcitonin. He will require a follow-up CT scan in 6 to 8 months to document resolution of these findings. This may represent smoking-related interstitial lung disease, respiratory bronchiolitis ILD or desquamative interstitial lung disease (RB ILD/DIP) 4. The patient social situation is likely going to impair his ability to follow-up and have these issues addressed. Case management may be beneficial. (2) Pulmonary embolism: (3) Multifocal pneumonia: Subjective Asked by the hospitalist service to evaluate this patient with an abnormal CT scan and PE. History is obtained from discussion with the patient as well as review the electronic medical record. Patient is a 48-year-old male with a 42-rhiv-thay history of tobacco abuse who was admitted to the facility about a week ago with pneumonia. He was treated in the outpatient setting with doxycycline. He states his symptoms never really got much better and he presented to the emergency room with chest pain. His d- dimer was elevated. A duplex ultrasound of the lower extremities was negative however CT scan did demonstrate subsegmental filling defects concerning for thromboembolic disease. He is been initiated on Lovenox. Antibiotics were broadened to include Zosyn and vancomycin. He is not on oxygen. He does not report syncope or presyncope. No palpitations. No swelling of his lower extremities. He does not report a personal or family history of clotting disorders. He has no significant occupational exposures as he is disabled. No pets. No family history of lung disease that he is aware of Review of Systems Review of Systems: See HPI. I have no additions or deletions Physical Exam Constitutional: WD/WN, vitals as above Neck: trachea midline, no thyromegaly Respiratory: Diminished breath sounds bilaterally with faint crackles Cardiovascular: RRR, no murmur, no edema Gastrointestinal (Abdomen): normal bowel sounds, soft, nontender, no hepatos plenomegaly Musculoskeletal: Extremities: extremities normal to inspection Skin: no rashes, warm and dry Neurologic: Nonfocal exam Lymphatic: no cervical lymphadenopathy Results & Data Vital Signs (Past 12 Hours) Vital Signs Temp Pulse Pulse Resp BP Pulse Ox 07/23/19 07:17 37.3 C 87 16 122/72 93 07/23/19 03:02 36.9 C 89 16 130/80 92 07/22/19 23:59 82 07/22/19 23:24 36.6 C 93 H 18 127/83 94 Laboratory Results 07/23/19 05:55 07/23/19 05:55 Microbiology 07/22/19 02:55 Blood Aerobic Blood Culture - Preliminary No growth in Aerobic bottle after 24 hours. 07/22/19 02:55 Blood Anaerobic Blood Culture - Preliminary No growth in Anaerobic bottle after 24 hours. 07/22/19 02:47 Blood Aerobic Blood Culture - Preliminary No growth in Aerobic bottle after [address] chest from 07/22/2019 was independently reviewed. There are faint diffuse groundglass opacities identified. Small filling defects identified in subsegmental pulmonary arteries consistent with acute thromboembolic disease. Small nonpathologic adenopathy identified. PG Care Time/CCT Total # of Minutes Spent Total Time Spent with Patient: Total time spent is greater than 50% in coordination of care (as documented) at patient's floor/unit and/or counseling patient:
[2019-07-23] MEDS ORDERED: AZITHROMYCIN 250 MG TAB PO SCH (09:00)
[2019-07-23] MEDS ORDERED: cefTRIAXone SODIUM 1,000 MG in DEXTROSE 5% 50 ML IV SCH (09:30)
[2019-07-23] MEDS ORDERED: VANCOMYCIN TROUGH SCH (11:30)
--- NOTE | 2019-07-23 11:51 | Hospitalist Progress Note ---
Date of Service July 23, 2019 Assessment & Plan (1) Pneumonia: -This is a 48-year-old male with past medical history significant to tobacco abuse, comes with chest pain. The patient was here in the hospital on 07/10/2019 with cough and was found to have right-sided pneumonia and was dis charged on p.o. doxycycline for 10 days. The patient states he has just finished doxycycline, but he is not coughing and he has no fever. He has some mild sweating, but he has developed right-sided chest pain, which brought him to the ER. In the ER on 07/22/19 during which he was found to have leukocytosis of 16,000 with imaging findings of persistent pneumonia -patient was started on IV Zosyn and IV Vancomycin -as of 07/22/19 stopped Vancomycin, continue IV Zosynd, add Doxycycline BID -pulmonary consult assessed patient on 07/23/19 and transitioned patients antibiotics to IV ceftriaxone and IV azithromycin -because of pneumonia and suspected pulmonary embolism, patient should have follow up CT scan (or CTA scan) in 6 to 8 months to document resolution of these findings. Suspected Pulmonary embolism -elevated D-dimer of 1300 -On CTA 07/22/19, Radiologist interpretation of filling defects involving subsegmental branches of the lateral basal segment right lower lobe pulmonary artery are suggestive of pulmonary emboli. No central pulmonary emboli identified. -ultrasound of Lower extremities does not show evidence fo Deep Vein Thrombosis -discussed with patient that the lack of deep vein thrombosis of the legs would not support a strong diagnosis of pulmonary embolism -However, given that pulmonary embolism cannot be completely ruled out at this time, advised patient of systemic anticoagulation for 3 months from 07/22/19 and repeat pulmonary embolism scans in the future as outpatient -patient is started on Lovenox 70 mg q12 hours for doing of 1 mg/kg q12 hours with 5 mg daily warfarin (coumadin) started on 07/22/19 -the goal INR level of warfarin is 2 to 3 -Patient is advised that while on coumadin he will need outpatient follow up to get INR level checks -INR is 1.1 on 07/23/19 -as per pulmonary consult 07/23/19: 3 to 6 months of anticoagulation. -patient may benefit from outpatient testing for possible inherited thrombophilia from a primary care doctor or hematology doctor (2) Pleuritic chest pain: -chest pain likely from pneumonia and possibly from suspected pulmonary embolism -troponins negative x 2, would not pursue further cardiac workup at this time for chest pain -BNP added on as per pulmonary consult (3) Tobacco use: -advise smoking cessation -will offer nicotine patches if patient is interested in taking these as smoking cessation -pulmonary consult also suggest that if patient's right sided infiltrates are not pneumonia then this may represent smoking-related interstitial lung disease, respiratory bronchiolitis ILD or desquamative interstitial lung disease (RB ILD/DIP) -Patient should complete antibiotic treatment and anticoagulation treatment and get follow up lung imaging tests as described above Case Management -patient does not have insurance and does not have primary care doctor -requested that case management help with seeking medical financial assistance/insurance coverage Subjective Patient seen and examined in the AM after he was seen by immunology teacher. Patient expressed concerns for prolonged hospitalization for IV antibiotics because he cannot get sleep in the hospital and because of potential financial costs. Patient has medical assistance form from lead case manager that is to be filled. Patient was explained that transitioning to oral antibiotics may be premature for the pneumonia and that currently the INR while on coumadin is not at goal. He agrees to let the nurse show home how to take Lovenox injections in case he is to be discharged on Lovenox with warfarin while subtherapeutic INR Review of Systems Review of Systems: All systems reviewed & are unremarkable except as noted in HPI & below Physical Exam Constitutional: comfortable Eyes: PERRL, conjunctivae normal, anicteric sclerae EOM intact bilaterally ENMT: external ear and nose normal, oropharynx normal Neck: normal visual inspection Respiratory: normal respiratory effort Cardiovascular: Rate/Rhythm: regular rate Gastrointestinal (Abdomen): normal bowel sounds, soft, nontender, no hepatosplenomegaly Musculoskeletal: Head/Neck/Chest: normocephalic and head atraumatic Neurologic: PERRL, EOMI, accommodation nl, no face palsy, no dysarthria CN's II-XI intact bilaterally Psychiatric: A+Ox3, euthymic affect Results & Data Vital Signs (Past 12 Hours) Vital Signs Temp Pulse Pulse Resp BP Pulse Ox 07/23/19 11:10 36.6 C 81 16 130/75 95 07/23/19 09:18 87 07/23/19 07:17 37.3 C 87 16 122/72 93 07/23/19 03:02 36.9 C 89 16 130/80 92 07/22/19 23:59 82 (1) Pneumonia Laterality: right Lung location: lower lobe of lung Pneumonia type: due to unspecified organism Qualified Code(s): J18.1 - Lobar pneumonia, unspecified organism
[2019-07-23] MEDS ORDERED: LOVENOX TEACHING KIT STA (12:54)
[2019-07-23] MEDS ORDERED: NICOTINE 7 MG/24 HR TDSY TD SCH (13:00)
--- NOTE | 2019-07-23 13:09 | Discharge Summary ---
Date of Service July 23, 2019 Admission HPI Per Admitting Provider CHIEF COMPLAINT: Chest pain. HISTORY OF PRESENT ILLNESS: This is a 48-year-old male with past medical history significant to tobacco abuse, comes with chest pain. The patient was here in the hospital on 07/10/2019 with cough and was found to have right-sided pneumonia and was discharged on p.o. doxycycline for 10 days. The patient states he has just finished doxycycline, and he is not coughing and he has no fever. He has some mild sweating, but he has developed right-sided chest pain, which brought him to the ER. In the ER, his white count was 16,000. He is afebrile, saturating okay on room air. His D-dimer was elevated at 1300. CTA of the chest was done, unofficial report is unremarkable except for pneumonia. Since he failed outpatient treatment, we are called for admission. The patient initially refused to stay in the hospital but then agreed. He received IV Zosyn and vancomycin in the ER since he already had doxycycline. The patient denies any headache, no blurred vision, no earache, no runny nose, no sore throat. Appetite is okay. No shortness of breath, no cough, no fe er, no nausea, no abdominal pain. Normal bowel and bladder movements. No hematuria, no burning micturition, no melena, or hematochezia. No swelling in the legs, no rash. He says he lives with his girlfriend. He states he has never been hospitalized before. Patient states he smokes 1.5 pack a day for the last 17 years. Quit alcohol in the s and also used to smoke marijuana 20 years ago. ALLERGIES: No known drug allergies. PAST MEDICAL HISTORY: None as per patient. PAST SURGICAL HISTORY: None as per patient. MEDICATIONS: None as per patient. FAMILY HISTORY: Grandfather has blood clots. SOCIAL HISTORY: Smokes 1.5 packs a day for last 17 years. Alcohol, quit in the 90s. He used to smoke marijuana in the long-term past. Lives with his girlfriend. REVIEW OF SYMPTOMS: As per HPI. Rest of review of systems negative. Admission Exam Per Admitting Provider PHYSICAL EXAMINATION: GENERAL: The patient is of moderate build, not in acute distress. VITAL SIGNS: Temperature 36.8, pulse 88, respiratory rate 16, blood pressure 90/65, oxygen 97% room air. HEENT: No pallor, no icterus. Pupils equal, round, reactive to light. NECK: No JVD, no neck masses, no carotid bruits. CARDIOVASCULAR: S1, S2 heard. Regular rate and rhythm. No murmurs. RESPIRATORY SYSTEM: Normal AP diameter, bilateral diminished breath sounds. No wheezing, no crackles. ABDOMEN: Soft, bowel sounds are present. Nontender. No distention. CENTRAL NERVOUS SYSTEM: Cranial nerves II-XII grossly nonfocal. EXTREMITIES: No edema, no erythema. Principal Diagnosis Pneumonia, Pleuritic Chest Pain, Suspected Pulmonary embolism, Tobacco use Discharge Exam Constitutional comfortable Eyes PERRL, conjunctivae normal, anicteric sclerae EOM intact bilaterally ENMT external ear and nose normal, oropharynx normal Neck normal visual inspection Respiratory normal respiratory effort Cardiovascular Rate/Rhythm: regular rate Gastrointestinal (Abdomen) normal bowel sounds, soft, nontender, no hepatosplenomegaly Musculoskeletal Head/Neck/Chest: normocephalic and head atraumatic Neurologic PERRL, EOMI, accommodation nl, no face palsy, no dysarthria CN's II-XI intact bilaterally Psychiatric A+Ox3, euthymic affect Discharge Data Allergies Allergy/AdvReac Type Severity Reaction Status Date / Time No Known Allergies Allergy Unverified 07/21/19 23:04 Consultations 07/22/19 02:37 ED Decision to Admit Stat 07/22/19 09:33 Consult Case Management - Discharge Planning Routine 07/23/19 06:58 Consult Pulmonology Routine Ordered Studies 07/22/19 00:34 CT angio chest PE protocol Urgent 07/22/19 08:35 US venous doppler [facility] Hospital Course (1) Pneumonia: -This is a 48-year-old male with past medical history significant to tobacco abuse, comes with chest pain. The patient was here in the hospital on 07/10/2019 with cough and was found to have right-sided pneumonia and was discharged on p.o. doxycycline for 10 days. The patient states he has just f inished doxycycline, but he is not coughing and he has no fever. He has some mild sweating, but he has developed right-sided chest pain, which brought him to the ER. In the ER on 07/22/19 during which he was found to have leukocytosis of 16,000 with imaging findings of persistent pneumonia -patient was started on IV Zosyn and IV Vancomycin -as of 07/22/19 stopped Vancomycin, continue IV Zosynd, add Doxycycline BID -pulmonary consult assessed patient on 07/23/19 and transitioned patients antibiotics to IV ceftriaxone and IV azithromycin -because of pneumonia and suspected pulmonary embolism, patient should have follow up CT scan (or CTA scan) in 6 to 8 months to document resolution of these findings -patient is insistent on short hospital course; discharge on antibiotics of amoxicillin clavulanate (875/125 mg) every 12 hours for 10 days and azithromycin 250 mg for 10 days Suspected Pulmonary embolism -elevated D-dimer of 1300 -On CTA 07/22/19, Radiologist interpretation of filling defects involving subsegmental branches of the lateral basal segment right lower lobe pulmonary artery are suggestive of pulmonary emboli. No central pulmonary emboli identified. -ultrasound of Lower extremities does not show evidence fo Deep Vein Thrombosis -discussed with patient that the lack of deep vein thrombosis of the legs would not support a strong diagnosis of pulmonary embolism -However, given that pulmonary embolism cannot be completely ruled out at this time, advised patient of systemic anticoagulation for 3 months from 07/22/19 and repeat pulmonary embolism scans in the future as outpatient -patient is started on Lovenox 70 mg q12 hours for doing of 1 mg/kg q12 hours with 5 mg daily warfarin (coumadin) started on 07/22/19 -the goal INR level of warfarin is 2 to 3 -Patient is advised that while on coumadin he will need outpatient follow up to get INR level checks -INR is 1.1 on 07/23/19 -as per pulmonary consult 07/23/19: 3 to 6 months of anticoagulation. Patient is discharged with prescriptions of Lovenox 70 mg every 12 hours with daily 5 mg warfarin (coumadin. Patient should take Lovenox and coumadin until Lovenox supply runs out by Tuesday07/25/19 -Patient should get INR check at a clinic by 07/24/19 -patient may benefit from outpatient testing for possible inherited thrombophilia from a primary care doctor or hematology doctor (2) Pleuritic chest pain: -chest pain likely from pneumonia and possibly from suspected pulmonary embolism -troponins negative x 2, BNP is normal -patient's pain for treated in the hospital -patient may take acetaminophen 325 mg every 6 hours as needed for pain or if fever for next 5 days (3) Tobacco use: -advise smoking cessation -will offer nicotine patches if patient is interested in taking these as smoking cessation -pulmonary consult also suggest that if patient's right sided infiltrates are not pneumonia then this may represent smoking-related interstitial lung disease, respiratory bronchiolitis ILD or desquamative interstitial lung disease (RB ILD/DIP) -Patient should complete antibiotic treatment and anticoagulation treatment and get follow up lung imaging tests as described above Case Management -patient does not have insurance and does not have primary care doctor -requested that case management help with seeking medical financial assistance/insurance coverage Total Time Total Time Spent Total Time Spent (In Minutes): 40 minutes Total Time Includes: Examination of the Patient, Discharge Planning, Medication Reconciliation and Communication With Other Providers Discharge Plan Discharge Items Patient Disposition: Home - Self-Care Reason For Visit: CHEST PAIN Discharge Diagnosis: Pneumonia, Pleuritic Chest Pain, Suspected Pulmonary embolism, Tobacco use Condition on Discharge: Good Activity: Resume your previous activity Non-emergency contact: Primary Care Provider Call non-emergency contact if: you have any medication questions Follow-up/Referrals: PCP,NO [Primary Care Provider] - Diet: Regular Addtl Attending Provider Instructions: Pneumonia -This is a 48-year-old male with past medical history significant to tobacco abuse, comes with chest pain. The patient was here in the hospital on 07/10/2019 with cough and was found to have right-sided pneumonia and was discharged on p.o. doxycycline for 10 days. The patient states he has just finished doxycycline, but he is not coughing and he has no fever. He has some mild sweating, but he has developed right-sided chest pain, which brought him to the ER. In the ER on 07/22/19 during which he was found to have leukocytosis of 16,000 with imaging findings of persistent pneumonia -patient was started on IV Zosyn and IV Vancomycin -as of 07/22/19 stopped Vancomycin, continue IV Zosynd, add Doxycycline BID -pulmonary consult assessed patient on 07/23/19 and transitioned patients antibiotics to IV ceftriaxone and IV azithromycin -because of pneumonia and suspected pulmonary embolism, patient should have fo llow up CT scan (or CTA scan) in 6 to 8 months to document resolution of these findings -patient is insistent on short hospital course; discharge on antibiotics of amoxicillin clavulanate (875/125 mg) every 12 hours for 10 days and azithromycin 250 mg for 10 days Suspected Pulmonary embolism -elevated D-dimer of 1300 -On CTA 07/22/19, Radiologist interpretation of filling defects involving subseg mental branches of the lateral basal segment right lower lobe pulmonary artery are suggestive of pulmonary emboli. No central pulmonary emboli identified. -ultrasound of Lower extremities does not show evidence fo Deep Vein Thrombosis -discussed with patient that the lack of deep vein thrombosis of the legs would not support a strong diagnosis of pulmonary embolism -However, given that pulmonary embolism cannot be completely ruled out at this time, advised patient of systemic anticoagulation for 3 months from 07/22/19 and repeat pulmonary embolism scans in the future as outpatient -patient is started on Lovenox 70 mg q12 hours for doing of 1 mg/kg q12 hours with 5 mg daily warfarin (coumadin) started on 07/22/19 -the goal INR level of warfarin is 2 to 3 -Patient is advised that while on coumadin he will need outpatient follow up to get INR level checks -INR is 1.1 on 07/23/19 -as per pulmonary consult 07/23/19: 3 to 6 months of anticoagulation. Patient is discharged with prescriptions of Lovenox 70 mg every 12 hours with daily 5 mg warfarin (coumadin. Patient should take Lovenox and coumadin until Lovenox supply runs out by Tuesday07/25/19 -Patient should get INR check at a clinic by 07/24/19 -patient may benefit from outpatient testing for possible inherited thrombophilia from a primary care doctor or hematology doctor Pleuritic chest pain: -chest pain likely from pneumonia and possibly from suspected pulmonary embolism -troponins negative x 2, BNP is normal -patient's pain for treated in the hospital -patient may take acetaminophen 325 mg every 6 hours as needed for pain or if fever for next 5 days Tobacco use: -advise smoking cessation -will offer nicotine patches if patient is interested in taking these as smoking cessation -pulmonary consult also suggest that if patient's right sided infiltrates are not pneumonia then this may represent smoking-related interstitial lung disease, respiratory bronchiolitis ILD or desquamative interstitial lung disease (RB ILD/DIP) -Patient should complete antibiotic treatment and anticoagulation treatment and get follow up lung imaging tests as described above Addtl Publishing Director Provider Instructions: Main Instructions to patient -discharge on antibiotics of amoxicillin clavulanate (875/125 mg) every 12 hours for 10 days and azithromycin 250 mg for 10 days -patient may take acetaminophen 325 mg every 6 hours as needed for pain or if fever for next 5 days -stop smoking, use nicotine substitutes -as per pulmonary consult 07/23/19: 3 to 6 months of anticoagulation. Patient is discharged with prescriptions of Lovenox 70 mg every 12 hours with daily 5 mg warfarin (coumadin. Patient should take Lovenox and coumadin until Lovenox supply runs out by Tuesday07/25/19 -Patient should get INR check at a clinic by 07/24/19 -Patient need to follow up with primary care doctor or center that does regular INR checks while on coumadin for 3 to 6 months -Patient may see a hematology doctor -Patient may see pulmonary doctor [facility] clinic Address: [facility] [place] [address] Pending Studies at Discharge: No Stand-Alone Forms: Call Back Authorization, [facility], Smoking Cessation Medications and DC Order Prescriptions: New acetaminophen 325 mg tablet 325 mg PO Q6H PRN (Reason: fever or pain) 5 Days Qty: 20 RF: 0 warfarin [Coumadin] 5 mg Tablet 5 mg PO DAILY@1600 30 Days Qty: 30 RF: 0 nicotine 7 mg/24 hr Patch 24 Hour 7 mg transdermal QAM 30 Days Qty: 30 RF: 0 enoxaparin [Lovenox] 80 mg/0.8 mL Syringe 70 mg subcut Q12H 3 Days Qty: 5 RF: 0 azithromycin [Zithromax] 250 mg Tablet 250 mg PO QAM 10 Days Qty: 10 RF: 0 amoxicillin-pot clavulanate [Augmentin] 875-125 mg tablet 1 tab PO Q12H 10 Days Qty: 20 RF: 0 Discontinued Vicks NyQuil Cold/Flu (cpm) 4-30-650 mg/30 mL Liquid 30 ml PO Q6H PRN (Reason: Cough) RF: 0 Discharge Orders: Discharge Order (Routine); Ordered 07/23/19 Ordered By: Nehemiah Boothe Admission Data Admit Date/Time: 07/22/19 02:55 Attending Provider: Nehemiah Boothe Admit Provider: Palepu,Ernesto P. Primary Care Provider: PCP,NO Other Providers: Ernesto Zuniga ; Jaswant Cool
[2019-07-23] MEDS ORDERED: WARFARIN SOD 5 MG TAB PO SCH (16:00)
== END 2019-07-23 14:57 | disposition home or self-care (01) | DRG 175 ==
LOC: ED 22:49 → SUATTDRO 07-22 02:55 → 2N 07-22 02:55